=== PATIENT | female | born 1945 | race Caucasian/White ===

== ENCOUNTER → 2017-05-16 | Outpatient (CLI) | payer MEDICARE ==
--- NOTE | 2017-05-16 15:51 | PCVCIMAG ---
APPROVED REPORT Study performed: 05/16/2017 14:12:33 EXAM: Comprehensive 2D, Doppler, and color-flow Echocardiogram Patient Location: Echo lab Status: routine BSA: 1.87 HR: 67 bpmBP: 138/64 mmHg Rhythm: NSR Other Information Study Quality: Adequate Risk Factors: Cardiac Risk Factors: HTN, Hyperlipidemia Indications Diabetes Dyspnea Paroxysmal A Fib 2D Dimensions LVEF(%): 65.41 (>50%) IVSd: 9.55 (7-11mm)LVOT Diam: 19.83 (18-24mm) LVDd: 45.19 mm PWd: 8.90 (7-11mm)Ascending Ao: 32.13 (22-36mm) LVDs: 29.03 (25-40mm) Left Atrium: 38.80 (27-40mm) Aortic Root: 20.42 mm LV Single Plane 4CH: 73.45 % LV Single Plane 2CH: 75.68 %Rebolledo's LVEF: 74.57 % Biplane EF: 76.1 % Volumes Left Atrial Volume (Systole) Single Plane 4CH: 67.67 mLSingle Plane 2CH: 58.80 mL LA ESV Index: 34.00 mL/m2 Aortic Valve AoV Peak Tyron.: 1.82 m/s AO Peak Gr.: 13.21 mmHgLVOT Max P.08 mmHg LVOT Max V: 1.01 m/s DIANN Vmax: 1.72 cm2 Mitral Valve E/A Ratio: 0.9 MV Decel. Time: 203.21 ms MV E Max Tryon.: 0.92 m/s MV A Tyron.: 0.98 m/s Pulmonary Valve PV Peak Tyron.: 1.24 m/sPV Peak Gr.: 6.14 mmHg Pulmonary Vein P Vein S: 0.67 m/sP Vein A: 0.30 m/s P Vein D: 0.51 m/sP Vein A Dur.: 103.8 msec P Vein S/D Ratio: 1.31 Tricuspid Valve TR Peak Tyron.: 2.23 m/s TR Peak Gr.: 19.97 mmHg TV Vmax: 0.59 m/s Left Ventricle The left ventricle is normal size. There is normal LV segmental wall motion. There is normal left ventricular wall thickness. Left ventricular systolic function is normal. The left ventricular ejection fraction is within the normal range. LVEF is 65%. Grade I - abnormal relaxation pattern. Right Ventricle The right ventricle is normal size. The right ventricular systolic function is normal. Atria The left atrium size is normal. The right atrium size is normal. Aortic Valve The aortic valve is normal in structure. No aortic regurgitation is present. There is no aortic valvular stenosis. Mitral Valve The mitral valve is normal in structure. There is no mitral valve regurgitation noted. No evidence of mitral valve stenosis. Tricuspid Valve The tricuspid valve is normal in structure. Trace tricuspid regurgitation with PAP of 27 mmHg. Pulmonic Valve The pulmonary valve is normal in structure. There is no pulmonic valvular regurgitation. Great Vessels The aortic root is normal in size. IVC is normal in size and collapses with >50% inspiration Pericardium There is no pericardial effusion. <Conclusion> The left ventricle is normal size. Left ventricular systolic function is normal. The right ventricle is normal size. The left atrium size is normal. There is no aortic valvular stenosis. The mitral valve is normal in structure. Trace tricuspid regurgitation with PAP of 27 mmHg.
== END | disposition home or self-care (01) ==
LOC: PCVCIMAG 13:48
PROVIDERS: ATTEND Internal Medicine Cardiovascular Disease
DX: I48.0 Paroxysmal atrial fibrillation (principal); R06.00 Dyspnea, unspecified; E11.9 Type 2 diabetes mellitus without complications; I10 Essential (primary) hypertension; E78.5 Hyperlipidemia, unspecified
CPT/HCPCS: 93306

== ENCOUNTER → 2017-07-16 | Outpatient (CLI) | payer MEDICARE ==
--- NOTE | 2017-07-16 16:31 | PCVCIMAG ---
APPROVED REPORT Study performed: 07/16/2017 12:50:13 EXAM: Comprehensive 2D, Doppler, and color-flow Echocardiogram Patient Location: Echo lab Status: routine BSA: 1.83 HR: 71 bpmBP: 115/63 mmHg Rhythm: NSR Other Information Study Quality: Adequate Risk Factors: Cardiac Risk Factors: HTN, DM Indications Palpitations Parox A Fib 2D Dimensions LVEF(%): 44.60 (>50%) IVSd: 12.93 (7-11mm) LVDd: 42.60 mm PWd: 12.66 (7-11mm) LVDs: 33.27 (25-40mm) Left Atrium: 39.42 (27-40mm) Aortic Root: 29.02 mm LV Single Plane 4CH: 61.93 % LV Single Plane 2CH: 51.17 %Rebolledo's LVEF: 56.55 % Biplane EF: 58.1 % Volumes Left Atrial Volume (Systole) Single Plane 4CH: 72.35 mLSingle Plane 2CH: 53.27 mL LA ESV Index: 36.00 mL/m2 Aortic Valve AoV Peak Tyron.: 1.55 m/s AO Peak Gr.: 9.63 mmHgLVOT Max P.02 mmHg LVOT Max V: 1.12 m/s Mitral Valve E/A Ratio: 0.8 MV Decel. Time: 257.11 ms MV E Max Tyron.: 0.66 m/s MV A Tyron.: 0.88 m/s MV PHT: 74.56 ms IVRT: 110.73 ms Pulmonary Valve PV Peak Tyron.: 1.05 m/sPV Peak Gr.: 4.39 mmHg Pulmonary Vein P Vein S: 0.35 m/sP Vein A: 0.29 m/s P Vein D: 0.46 m/sP Vein A Dur.: 134.9 msec P Vein S/D Ratio: 0.76 Tricuspid Valve TR Peak Tyron.: 2.04 m/s TR Peak Gr.: 16.68 mmHg Left Ventricle The left ventricle is normal size. There is normal LV segmental wall motion. Mild concentric left ventricular hypertrophy. Left ventricular systolic function is normal. The left ventricular ejection fraction is within the normal range. LVEF is 55-60%. Grade I - abnormal relaxation pattern. Right Ventricle The right ventricle is normal size. The right ventricular systolic function is normal. Atria Left atrium is mildly dilated. The right atrium size is normal. Aortic Valve The aortic valve is normal in structure. No aortic regurgitation is present. There is no aortic valvular stenosis. Mitral Valve The mitral valve is normal in structure. Mild mitral regurgitation. No evidence of mitral valve stenosis. Tricuspid Valve The tricuspid valve is normal in structure. Trace tricuspid regurgitation with PAP of 24 mmHg. Pulmonic Valve The pulmonary valve is normal in structure. There is no pulmonic valvular regurgitation. Great Vessels The aortic root is normal in size. IVC is normal in size and collapses with >50% inspiration Pericardium There is no pericardial effusion. <Conclusion> The left ventricle is normal size. Left ventricular systolic function is normal. Grade I - abnormal relaxation pattern. The right ventricle is normal size. Left atrium is mildly dilated. The aortic valve is normal in structure. The mitral valve is normal in structure.
== END | disposition home or self-care (01) ==
LOC: PCVCIMAG 12:41
PROVIDERS: ATTEND Internal Medicine Cardiovascular Disease
DX: I48.0 Paroxysmal atrial fibrillation (principal); R00.2 Palpitations; I10 Essential (primary) hypertension; E78.5 Hyperlipidemia, unspecified; I34.0 Nonrheumatic mitral (valve) insufficiency
CPT/HCPCS: 93306